=== PATIENT | female | born 1945 ===

== ENCOUNTER 2017-08-01 08:25 | Emergency (ER) | payer OTHER ==
[~2017-08-01] VITALS: Ht 162.6 cm; Wt 81.7 kg
[~2017-08-01 08:25] MED LIST: ALBU3IS INH; ALBU90OI INH; ALBU90OI6 INH; ALBU90OI61 INH; ASPI81CH PO; ASPI81EC PO; Albuterol2.5 MG/0.5 INH; Benadryl 50 mg50 MG PO; CHOL10002 PO; CHRO200 PO; CYAN1000 PO; CYCL10 PO; Cheratussin AC118 ML PO; DULERA 100 MCG/13 GM INH; Esgic Tablet1 EACH PO; FLUT220OIA INH; HYDACE10B PO; HYDCHL25 PO; HYDR1TAB94 PO; LANS30EC; LEVO750 PO; LIDO700A20 TOP; LISHYD1012 PO; MAGCHL64ER PO; METF500C PO; METO25ER PO; MIGRELIEF CAPL1 EACH PO; Mucinex600 MG PO; Multiple Vitam1 EAC1 PO; Nephro-Vite RX1 EA PO; Nicotine Patch1 EAC4 TD; Norco 5-325 Ta1 EACH PO; OMEP20ER PO; OMEP40CA12 PO; OMEPRAZOLE MAGN20 MG PO; OXECTA5 MG PO; OXYACE5T PO; OXYGEN; PRED20 PO; PROM25 PO; Pepcid40 MG PO; Percocet 5-3251 EACH PO; Prednisone20 MG PO; Red Yeast Rice600 MG PO; SUCR1 PO; TIOT18 IH; TOPI25 PO; Toprol Xl25 MG PO; UBID10 PO; VARE1 PO; Valium5 MG PO; Vitamin A and1 EACH PO; Zithromax250 MG PO; [UNRECOGNIZED DRUG - OTHER]
[2017-08-01 09:10] LABS: BASOPHILS ABSOLUTE AUTO 0.02 K/mm3 (0.00-0.23); BASOPHILS PERCENT AUTO 0 % (0-2); EOSINOPHILS ABSOLUTE AUTO 0.12 K/mm3 (0.00-0.68); EOSINOPHILS PERCENT AUTO 2 % (0-6); Hematocrit 30.6 % (33.0-51.0); IMMATURE GRAN ABSOLUTE AUTO 0.01 K/mm3 (0.00-0.10); IMMATURE GRAN PERCENT AUTO 0 % (0-1); LYMPHOCYTES ABSOLUTE AUTO 1.71 K/mm3 (0.84-5.20); LYMPHOCYTES PERCENT AUTO 31 % (21-46); MONOCYTES PERCENT AUTO 7 % (4-13); Mean Corpuscular HGB 21.7 pg (26.0-34.0); Mean Corpuscular HGB Conc 29.4 g/dL (31.5-36.5); Mean Corpuscular Volume 74 fL (80-100); Mean Platelet Volume 10.2 fL (9.1-12.4); NEUTROPHILS PERCENT AUTO 59 % (41-73); Platelet Count 220 K/mm3 (150-400); RDW Coefficient Variation 15.9 % (11.7-14.2); RDW Standard Deviation 42.6 fL (35.1-46.3); Red Blood Cell Count 4.15 M/mm3 (3.80-5.20); White Blood Cell Count 5.56 K/mm3 (4.00-11.30)
[2017-08-01 09:30] LABS: Albumin/Globulin Ratio 1.2 (0.8-1.8); Bilirubin, Total 0.3 mg/dL (0.1-1.0); Calcium, Blood 9.1 mg/dL (8.5-10.1); Globulin, Blood 3.3 g/dL (2.2-4.0); Potassium, Blood 3.7 mmol/L (3.5-5.5); Total Protein, Blood 7.3 g/dL (6.4-8.2); Troponin I 0.021 ng/mL (0.000-0.040)
[2017-08-01] MEDS ORDERED: Percocet 5-3251 EACH PO (10:53)
== END 2017-08-01 11:49 | disposition home or self-care (01) ==
LOC: ER 08:25
PROVIDERS: Emergency Medicine
DX: J44.1 Chronic obstructive pulmonary disease with (acute) exacerbation (principal); M54.6 Pain in thoracic spine; F17.210 Nicotine dependence, cigarettes, uncomplicated; Z88.8 Allergy status to other drugs, medicaments and biological substances; Z79.899 Other long term (current) drug therapy; Z79.82 Long term (current) use of aspirin; I10 Essential (primary) hypertension; J44.9 Chronic obstructive pulmonary disease, unspecified
CPT/HCPCS: 36415; 71046; 80053; 83880; 84484; 85025; 93005; 93010; 94644; 96361; 96365; 96375; 96376; 99284; J2405; J2930; J3010; J3475; J7030

== ENCOUNTER 2017-11-09 13:44 | Emergency (ER) | payer OTHER ==
[~2017-11-09] VITALS: Ht 162.6 cm; Wt 79.4 kg
[2017-11-09] MEDS ORDERED: LIDO700A20 TOP (14:20)
== END 2017-11-09 14:40 | disposition home or self-care (01) ==
LOC: ER 13:44
DX: M54.6 Pain in thoracic spine (principal); G89.29 Other chronic pain; I10 Essential (primary) hypertension; J44.9 Chronic obstructive pulmonary disease, unspecified; F17.210 Nicotine dependence, cigarettes, uncomplicated; Z88.8 Allergy status to other drugs, medicaments and biological substances; Z79.899 Other long term (current) drug therapy; Z79.82 Long term (current) use of aspirin
CPT/HCPCS: 99282

== ENCOUNTER 2017-11-14 10:34 | Emergency (ER) | payer OTHER ==
[~2017-11-14] VITALS: Ht 162.6 cm; Wt 77.1 kg
[2017-11-14] MEDS ORDERED: Hydrocodone-Ap1 EA20 (12:42)
[2017-11-14] MEDS ORDERED: Prednisone20 MG PO (14:12)
== END 2017-11-14 14:20 | disposition home or self-care (01) ==
LOC: ER 10:34
DX: J44.1 Chronic obstructive pulmonary disease with (acute) exacerbation (principal); M54.5 Low back pain; G89.29 Other chronic pain; Z88.8 Allergy status to other drugs, medicaments and biological substances; Z79.899 Other long term (current) drug therapy; Z79.82 Long term (current) use of aspirin; Z79.891 Long term (current) use of opiate analgesic; I10 Essential (primary) hypertension; F17.210 Nicotine dependence, cigarettes, uncomplicated
CPT/HCPCS: 71046; 94640; 96372; 99283; J1885

== ENCOUNTER 2019-02-15 16:39 | Observation (INO) | payer OTHER ==
[~2019-02-15] VITALS: Ht 162.6 cm; Wt 67.1 kg
[~2019-02-15 16:39] MED LIST changes: -ASPI81CH PO; +Aspirin EC81 MG PO; -CHOL10002 PO; +Hydrocodone-Ap1 EA20; -METO25ER PO; +METO50ER PO; -TIOT18 IH; +TIOT18 INH; +VITAMIN D31000 UNI2 PO
[2019-02-15 17:14] LABS: BASOPHILS ABSOLUTE AUTO 0.02 K/mm3 (0.00-0.23); BASOPHILS PERCENT AUTO 0 % (0-2); EOSINOPHILS ABSOLUTE AUTO 0.07 K/mm3 (0.00-0.68); EOSINOPHILS PERCENT AUTO 1 % (0-6); Hematocrit 27.3 % (33.0-51.0); Hemoglobin 7.9 g/dL (11.5-16.0); IMMATURE GRAN ABSOLUTE AUTO 0.02 K/mm3 (0.00-0.10); IMMATURE GRAN PERCENT AUTO 0 % (0-1); LYMPHOCYTES PERCENT AUTO 39 % (21-46); MONOCYTES ABSOLUTE AUTO 0.52 K/mm3 (0.16-1.47); MONOCYTES PERCENT AUTO 11 % (4-13); Mean Corpuscular HGB 20.7 pg (26.0-34.0); Mean Corpuscular HGB Conc 28.9 g/dL (31.5-36.5); Mean Corpuscular Volume 72 fL (80-100); Mean Platelet Volume 10.3 fL (9.1-12.4); NEUTROPHILS ABSOLUTE AUTO 2.34 K/mm3 (1.96-9.15); NEUTROPHILS PERCENT AUTO 48 % (41-73); Platelet Count 213 K/mm3 (150-400); RDW Coefficient Variation 18.2 % (11.7-14.2); RDW Standard Deviation 46.9 fL (35.1-46.3); Red Blood Cell Count 3.81 M/mm3 (3.80-5.20); White Blood Cell Count 4.87 K/mm3 (4.00-11.30)
[2019-02-15 17:28] LABS: Alanine Aminotransfer (ALT/SGP 12 U/L (12-78); Albumin, Blood 3.3 g/dL (3.4-5.0); Albumin/Globulin Ratio 1.1 (0.8-1.8); Alk Phos 62 U/L (50-136); Anion Gap 4 mmol/L (6-16); Aspartate Aminotrans (AST/SGOT 14 U/L (12-37); Bilirubin, Total 0.2 mg/dL (0.1-1.0); Blood Urea Nitrogen 14 mg/dL (8-24); Bun/Creatinine Ratio 16.1 (12.0-20.0); CO2, Blood 26 mmol/L (21-32); Calcium, Blood 8.9 mg/dL (8.5-10.1); Chloride, Blood 106 mmol/L (98-108); Creatinine, Blood 0.87 mg/dL (0.40-1.00); Globulin, Blood 3.1 g/dL (2.2-4.0); Glomerular Filtration Rate >60 (60-); Glucose, Blood 117 mg/dL (70-99); Potassium, Blood 3.7 mmol/L (3.5-5.5); Sodium, Blood 136 mmol/L (136-145); Total Protein, Blood 6.4 g/dL (6.4-8.2); Troponin I <0.015 ng/mL (0.000-0.040)
[2019-02-15] MEDS ORDERED: Norco 10-325 T1 EACH PO (20:39)
[2019-02-15] MEDS ORDERED: TRAZ50 PO (20:43)
[2019-02-15 21:10] LABS: Percent Saturation 5.2 % (15.0-50.0)
[2019-02-16 05:23] LABS: Hematocrit 27.3 % (33.0-51.0); Hemoglobin 7.7 g/dL (11.5-16.0); Mean Corpuscular HGB 20.1 pg (26.0-34.0); Mean Corpuscular HGB Conc 28.2 g/dL (31.5-36.5); Mean Corpuscular Volume 71 fL (80-100); Mean Platelet Volume 11.1 fL (9.1-12.4); Platelet Count 200 K/mm3 (150-400); RDW Coefficient Variation 18.2 % (11.7-14.2); RDW Standard Deviation 45.9 fL (35.1-46.3); Red Blood Cell Count 3.83 M/mm3 (3.80-5.20); White Blood Cell Count 3.42 K/mm3 (4.00-11.30)
[2019-02-16] MEDS ORDERED: FERSU300 PO (15:19)
[2019-02-16] MEDS ORDERED: Senna Plus Tab1 EACH PO (15:22)
[2019-02-16] MEDS ORDERED: Nicoderm Cq1 EAC1 (15:22)
[2019-02-16] MEDS ORDERED: MIRALAX17 GM PO (15:24)
[2019-02-16] MEDS ORDERED: PRED20 PO (15:26)
--- NOTE | 2019-02-16 16:13 | NUR ---
Discharge Summary A/O x 4. Discharge paper and teaching reviewed with patient. Given time to ask questions. Pt transported via w/c by COMB TENDER and discharge to home via personal vehicle. Personal belongings bagged by pt and COMB TENDER, sent home. Pt instructed to f/u with primary and pickling grader prescriptions faxed to [facility].
== END 2019-02-16 16:03 | disposition home or self-care (01) ==
LOC: ER 16:39 → MEDS 16:40
PROVIDERS: Emergency Medicine; ADMIT Hospitalist
DX: R07.9 Chest pain, unspecified (principal); G89.29 Other chronic pain; M54.9 Dorsalgia, unspecified; I10 Essential (primary) hypertension; J44.9 Chronic obstructive pulmonary disease, unspecified; D50.9 Iron deficiency anemia, unspecified; F17.210 Nicotine dependence, cigarettes, uncomplicated; Z99.81 Dependence on supplemental oxygen; Z88.8 Allergy status to other drugs, medicaments and biological substances; Z79.899 Other long term (current) drug therapy; Z79.51 Long term (current) use of inhaled steroids; Z79.82 Long term (current) use of aspirin
CPT/HCPCS: 36415; 71046; 80053; 82728; 83540; 83550; 83880; 84484; 85025; 85027; 86850; 86900; 86901; 93005; 93010; 94640; 94760; 96365; 96367; 96372; 96375; 97110; 97161; 99285-25; A9270; G0378; J1650; J2916; J2930; J3475; J7030

== ENCOUNTER 2020-11-20 07:46 | Inpatient (IN) | payer OTHER ==
[~2020-11-20] VITALS: Ht 162.6 cm; Wt 50.4 kg
[~2020-11-20 07:46] MED LIST changes: +FERSU300 PO; +MIRALAX17 GM PO; +Nicoderm Cq1 EAC1; +Norco 10-325 T1 EACH PO; +Senna Plus Tab1 EACH PO; +TRAZ50 PO
[2020-11-20 08:26] LABS: BASOPHILS ABSOLUTE AUTO 0.02 K/mm3 (0.00-0.23); BASOPHILS PERCENT AUTO 0 % (0-2); EOSINOPHILS PERCENT AUTO 0 % (0-6); Hematocrit 31.1 % (33.0-51.0); Hemoglobin 9.1 g/dL (11.5-16.0); IMMATURE GRAN ABSOLUTE AUTO 0.07 K/mm3 (0.00-0.10); IMMATURE GRAN PERCENT AUTO 1 % (0-1); LYMPHOCYTES ABSOLUTE AUTO 0.71 K/mm3 (0.84-5.20); LYMPHOCYTES PERCENT AUTO 10 % (21-46); MONOCYTES ABSOLUTE AUTO 0.67 K/mm3 (0.16-1.47); MONOCYTES PERCENT AUTO 10 % (4-13); Mean Corpuscular HGB 21.9 pg (26.0-34.0); Mean Corpuscular HGB Conc 29.3 g/dL (31.5-36.5); Mean Corpuscular Volume 75 fL (80-100); Mean Platelet Volume 9.3 fL (9.1-12.4); NEUTROPHILS ABSOLUTE AUTO 5.55 K/mm3 (1.96-9.15); NEUTROPHILS PERCENT AUTO 79 % (41-73); Platelet Count 184 K/mm3 (150-400); RDW Coefficient Variation 17.8 % (11.7-14.2); RDW Standard Deviation 48.1 fL (35.1-46.3); Red Blood Cell Count 4.15 M/mm3 (3.80-5.20); White Blood Cell Count 7.02 K/mm3 (4.00-11.30)
[2020-11-20 08:43] LABS: Alanine Aminotransfer (ALT/SGP 10 U/L (12-78); Albumin, Blood 3.2 g/dL (3.4-5.0); Alk Phos 62 U/L (50-136); Anion Gap 6 mmol/L (6-16); Aspartate Aminotrans (AST/SGOT 15 U/L (12-37); Bilirubin, Total 0.3 mg/dL (0.1-1.0); Blood Urea Nitrogen 20 mg/dL (8-24); Bun/Creatinine Ratio 21.3 (12.0-20.0); CO2, Blood 27 mmol/L (21-32); Chloride, Blood 101 mmol/L (98-108); Creatinine, Blood 0.94 mg/dL (0.40-1.00); Globulin, Blood 3.1 g/dL (2.2-4.0); Glomerular Filtration Rate >60 (60-); Glucose, Blood 141 mg/dL (70-99); Potassium, Blood 3.9 mmol/L (3.5-5.5); Sodium, Blood 134 mmol/L (136-145); Total Protein, Blood 6.3 g/dL (6.4-8.2)
[2020-11-20 09:10] LABS: Magnesium, Blood 1.7 mg/dL (1.6-2.4); Thyroid Stimulating Hormone 1.62 uIU/mL (0.360-4.800)
[2020-11-20 09:11] LABS: Percent Saturation 3.9 % (15.0-50.0)
[2020-11-20 11:55] LABS: U Amphetamine Screen Not Detected; U Barbituate Screen Not Detected; U Benzodiazapine Screen Not Detected; U Buprenorphine Screen Not Detected; U Cannabinoids Screen Not Detected; U Cocaine Screen Not Detected; U Methadone Screen Not Detected; U Methamphetamine Screen Not Detected; U Opiates Screen DETECTED; U Oxycodone Screen DETECTED; U Phencyclidine Screen Not Detected; U Propoxyphene Screen Not Detected
--- NOTE | 2020-11-20 12:28 | NUR ---
PT ARRIVED TO THE ROOM AT 1220. PT IS ALERT AND ORIENTED. PT BECOMES SHORT OF BREATH WITH MINIMAL ACTIVITY AND RR INCREASEDS. O2 SATURATION 98% ON 2L, WILL TITRATE DOWN. PT REPORTS BACK IS 02/04 BUT HAS IMPROVED WITH REPOSITIONING. WILL CONTINUE TO MONITOR.
[2020-11-20 12:56] LABS: International Normalized Ratio 0.93; Prothrombin Time Results 10.1 Sec (9.7-11.5)
--- NOTE | 2020-11-20 15:57 | NUR ---
DR. CARBONE ROUNDED ON PT. CYST PARTIALLY DRAINED WHEN DR. CARBONE ARRIVED. PRURULENT DISCHARGE FROM CYST. CLEAN GAUZE DRESSING PLACED. WILL CONTINUE TO MONITOR OUTPUT AND CHANGE DRESSING NEEDED.
--- NOTE | 2020-11-20 17:15 | NUR ---
EVENING ASSESSMENT ASSESSMENT UNCHANGED FROM ADMIT ASSESSMENT. PT REMAINS SOB WITH ACTIVITY. INCREASED RR AND EFFORT WITH MOVEMENT. PT REMAINS ALERT AND ORIENTED. LUNG SOUND RHONCUS T/O. VSS.
--- NOTE | 2020-11-20 18:24 | NUR ---
INCREASED SHORTNESS OF BREATH WITH ACTIVITY. PT GOT UP TO THE BEDSIDE COMMODE AND IS HAVING DIFFICULTY RECOVERING FROM ACTIVITY. O2 SATURATIONS REMAIN STABLE. ISTRATE NOTIFIED OF CHANGE IN RESPIRATORY STATUS. PLAN TO START PREDNISONE NOW.
--- NOTE | 2020-11-20 19:51 | NUR ---
SHIFT SUMMARY PT HAS BEEN PLEASANT AND COOPERATIVE MOST OF THE DAY. SHE WAS PLACED ON A 2 MD HOLD SINCE SHE APPEARS UNABLE TO CARE FOR HERSELF AT BASELINE. PT HAS BEEN TITRATED DOWN ON OXYGEN THIS SHIFT. SHE REMAINS ON 12L O2 VIA HIGH FLOW NC AT THIS TIME. PT APPEARS TO BE TOLERATING WELL. RR AND EFFORT EVEN AND UNLABORED ALTHOUGH LUNG SOUNDS HAVE BEEN DIMINISHED T/O THE DAY. PT HAS REPORTED SOME PAIN, MANAGED WITH TYLENOL. PT IS A 1 PERSON ASSIST. BLOOD GLUCOSE LEVELS REMAIN ELEVATED, PT LIKES TO SNACK. PT HAS BEEN OFFERED LOW CARB SNACKS AND SUGAR FREE FOODS. PT HAS ALSO BEEN EDUCATED ABOUT DIET AND REDUCING SNACKS. PT WAS ALSO EDUCATED THAT ELEVATED BLOOD GLUCOSE CAN CAUSE INCREASED THIRST. PT APPEARS TO LISTEN TO EDUCATION BUT NEEDS FREQUENT REINFORCEMENT. PT REPORTED ITCHING ON HER HEAD AND FELT LIKE A SPIDER WAS CRAWLING IN HER HAIR. HAIR WAS EXAMINED AND LICE EGGS FOUND. PT DECLINED LICE TREATMENT THIS AFTERNOON. VSS.
--- NOTE | 2020-11-20 19:59 | NUR ---
SHIFT SUMMARY PT WAS A NEW ADMIT THIS AFTERNOON. SHE HAS BEEN ALERT AND ORIENTED SINCE ADMIT. PT HAS BEEN SHORT OF BREATH WITH INCREASED RR AND EFFORT WITH MINIMAL ACTIVITY. SHE TAKES 5+ MINUTES TO RECOVER HER BREATH AFTER STANDING AND GETTING TO THE BEDSIDE COMMODE. PT HAD CRITICAL HIGH TROPONIN THIS AFTERNOON, DR. PHILIP CONSULTED PER DR. ELLIOTT'S REQUEST. DR. CARBONE WAS CONSULTED FOR THE CYST ON THE PT'S BACK AND WAS ABLE TO DRAIN SOME PURULENT FLUID. AT SHIFT CHANGE PT STARTED TO REPORT SOME CHEST PAIN, NITRO WAS GIVEN AT 1916. CHEST PAIN RESOLVED BY 1922. PT WAS ALSO GIVEN PRILOSEC BECAUSE SHE FELT THE PAIN MAY HAVE BEEN A RESULT OF ACID REFLUX. EKG DONE. WELDING MANAGER AND NOC RN AWARE OF CHEST PAIN. REPORT GIVEN TO NOC RN.
--- NOTE | 2020-11-20 19:59 | NUR ---
CHEST PAIN DURING CHANGE OF SHIFT REPORT PT HAD C/O SOB AND CHEST PAIN, BP ELEVATED AT THIS TIME SO 1 NITRO GIVEN W RESOLUTION OF SYMTPOMS. EKG DONE AT BEDSIDE AND CHARGE NURSE NOTIFIED.
[2020-11-21 04:17] LABS: BASOPHILS PERCENT AUTO 0 % (0-2); EOSINOPHILS PERCENT AUTO 0 % (0-6); Hematocrit 28.3 % (33.0-51.0); Hemoglobin 8.4 g/dL (11.5-16.0); IMMATURE GRAN ABSOLUTE AUTO 0.04 K/mm3 (0.00-0.10); IMMATURE GRAN PERCENT AUTO 2 % (0-1); LYMPHOCYTES ABSOLUTE AUTO 0.57 K/mm3 (0.84-5.20); LYMPHOCYTES PERCENT AUTO 21 % (21-46); MONOCYTES ABSOLUTE AUTO 0.09 K/mm3 (0.16-1.47); MONOCYTES PERCENT AUTO 3 % (4-13); Mean Corpuscular HGB 22.2 pg (26.0-34.0); Mean Corpuscular HGB Conc 29.7 g/dL (31.5-36.5); Mean Corpuscular Volume 75 fL (80-100); Mean Platelet Volume 9.9 fL (9.1-12.4); NEUTROPHILS ABSOLUTE AUTO 2.04 K/mm3 (1.96-9.15); NEUTROPHILS PERCENT AUTO 74 % (41-73); Platelet Count 196 K/mm3 (150-400); RDW Coefficient Variation 17.6 % (11.7-14.2); RDW Standard Deviation 47.2 fL (35.1-46.3); Red Blood Cell Count 3.79 M/mm3 (3.80-5.20); White Blood Cell Count 2.74 K/mm3 (4.00-11.30)
[2020-11-21 04:53] LABS: Alanine Aminotransfer (ALT/SGP 10 U/L (12-78); Albumin, Blood 2.8 g/dL (3.4-5.0); Alk Phos 47 U/L (50-136); Anion Gap 9 mmol/L (6-16); Aspartate Aminotrans (AST/SGOT 13 U/L (12-37); Bilirubin, Total 0.3 mg/dL (0.1-1.0); Blood Urea Nitrogen 18 mg/dL (8-24); CO2, Blood 23 mmol/L (21-32); Calcium, Blood 8.2 mg/dL (8.5-10.1); Chloride, Blood 103 mmol/L (98-108); Creatinine, Blood 0.75 mg/dL (0.40-1.00); Globulin, Blood 2.7 g/dL (2.2-4.0); Glomerular Filtration Rate >60 (60-); Glucose, Blood 89 mg/dL (70-99); Magnesium, Blood 1.9 mg/dL (1.6-2.4); Potassium, Blood 4.2 mmol/L (3.5-5.5); Sodium, Blood 135 mmol/L (136-145); Total Protein, Blood 5.5 g/dL (6.4-8.2)
--- NOTE | 2020-11-21 05:23 | NUR ---
WEAVER NEEDLE LOOM SUMMARY PT HAD ONE EPSIODE OF CP THIS SHIFT WHICH RESOLVED WITH ONE NITRO, SEE PREVIOUS NOTE. AFTER THAT EVENT THE PT DENIED ANY CP OR PRESSURE ALL SHIFT HOWEVER SHE DID HAVE MULTIPLE EPSIODES WHERE SHE SAID SHE COULDN'T BREATH. DURING THESE EVENTS THE PATIENT MAINTAINED O2 SATS >92% ON 2L NC BUT WAS TACHYPNEIC. PROVIDER NOTIFIED OF PT'S RESP PROBLEMS AND ORDER TO STOP FLUIDS WAS GIVEN. PT'S BP ELEVATED THIS SHIFT W SYSTOLIC 147-178. TELE HAS SHOWN SR IN THE 90'S W ST DEPRESSION, PT'S T WAVE COMPLETELY INVERTED THIS AM. PROTECTIVE OFFICER CONSULTED PT AT BEDSIDE PLAN FOR POSSIBLE CATH IN AM. PT NPO SINCE MIDNIGHT. TROPONIN UP TO 1.16 THIS AM. WILL REPORT TO ONCOMING RN.
--- NOTE | 2020-11-21 14:07 | NUR ---
ASSUMED CARE OF PT AT APPROX 0700. PT A&Ox3, FORGETFUL. PT REPORTS NAUSEA, NO MEDICATIONS PRESCRIBED, NOTIFIED DR MENDOZA, NEW ORDERS ENTERED. PT REPORTS CHRONIC PAIN TO STOMACH, NOTIIFED DR ELLIOTT, NEW ORDERS FOR PAIN MEDICATIONS TO MATCH HOME DOSE. PT REPORTS HEART BURN, NOTIIFED DR MENDOZA, NEW ORDERS FOR TUMS ENTERED. PT REPORTS FEELING ANXIOUS, NEW ORDERS FROM DR COVARRUBIAS ENTERED FOR LORAZEPAM. PT DENIES CHEST PAIN AND SOB. PT ON 2L O2 VIA NC. DR CARBONE TO BEDSIDE THIS AM, CLEANED AND FLUSHED CYST ON BACK, NEW MEPILEX IN PLACE, C/D/I. AWAITING ANGIO, HEPARIN CONTINUES PER ORDERS. VSS. NO OTHER ACUTE CHANGES. WILL CONTINUE TO MONITOR.
--- NOTE | 2020-11-21 19:54 | NUR ---
SHIFT SUMMARY PT TO POLISHING MACHINE OPERATOR AT APPROX 1630; BACK TO ROOM AT APPROX 1740. RIGHT RADIAL SITE; NO BLEEDING, BRUISING OR HEMATOMA NOTED; NO INTERVENTION NOTED. THIS AFTERNOON DR COVARRUBIAS VERBAL ORDER FOR PO ATIVAN. VSS. NO OTHER ACUTE CHANGES NOTED. REPORT GIVEN TO ONCOMING.
--- NOTE | 2020-11-22 04:21 | NUR ---
MD CALL PER DR. LANE, CALLED CARDIOLOGY AND NOTIFIED OF SYNCOPAL EPISODE AND SUBSEQUENT CHEST COMPRESSIONS. RHYTHM STRIPS IN CHART AND EKG DONE, PT IS SINUS TACH AND ALERT, COMPLAINING OF SHORTNESS OF BREATH. TRANSFERRED TO ICU-13 FOR BIPAP AND CARDIAC MONITORING FOR POSSIBLE NEED OF PACEMAKER.
--- NOTE | 2020-11-22 04:23 | NUR ---
CODE BLUE PT SET OFF BED ALARM, THIS RN ENTERED THE ROOM TO FIND THE PT SITTING AT THER EDGE OF THE BED APPEARING VERY TACHYPNEIC. THIS RN ASKED THE PATIENT HOW SHE WAS FEELING WHEN THE PT THEN QUICKLY FELL BACK INTO THE BED WITH HER HEAD LOCKED BACK. PT APPEARED CONCIOUS AT THIS TIME BUT WAS NOT RESPONDING VERBALLY. VP OF MARKETING CALLED AND STATED THAT THE PT WAS ASYSTOLE. PT WAS UNRESPONSIVE AT THIS TIME AND THIS RN BEGAN CHEST COMPRESSIONS A CODE BLUE WAS INITIATED. AFTER APPROX 3 CHEST COMPRESSIONS THE PT REGAINED CONSCIOUSNESS AND WAS ABLE TO TALK.
--- NOTE | 2020-11-22 04:26 | NUR ---
ATTEMPTED CALL TO FAMILY CALLED BOTH PHONE NUMBERS FOR SAMANTHA AND ROMEO AT THE PT'S REQUEST TO NOTIFY OF ICU TRANSFER. UNABLE TO REACH EITHER CONTACT, LET PT AND DATA PROCESSING SYSTEMS CONSULTANT JUAN CARLOS KNOW THAT FAMILY HAVE NOT BEEN NOTIFIED AT THIS TIME.
[2020-11-22 04:27] LABS: BASOPHILS ABSOLUTE AUTO 0.01 K/mm3 (0.00-0.23); BASOPHILS PERCENT AUTO 0 % (0-2); EOSINOPHILS PERCENT AUTO 0 % (0-6); Hematocrit 34.3 % (33.0-51.0); Hemoglobin 10.1 g/dL (11.5-16.0); IMMATURE GRAN ABSOLUTE AUTO 0.09 K/mm3 (0.00-0.10); IMMATURE GRAN PERCENT AUTO 1 % (0-1); LYMPHOCYTES ABSOLUTE AUTO 2.22 K/mm3 (0.84-5.20); LYMPHOCYTES PERCENT AUTO 16 % (21-46); MONOCYTES ABSOLUTE AUTO 0.98 K/mm3 (0.16-1.47); MONOCYTES PERCENT AUTO 7 % (4-13); Mean Corpuscular HGB 22.1 pg (26.0-34.0); Mean Corpuscular HGB Conc 29.4 g/dL (31.5-36.5); Mean Corpuscular Volume 75 fL (80-100); Mean Platelet Volume 9.6 fL (9.1-12.4); NEUTROPHILS ABSOLUTE AUTO 10.99 K/mm3 (1.96-9.15); NEUTROPHILS PERCENT AUTO 77 % (41-73); Platelet Count 306 K/mm3 (150-400); RDW Coefficient Variation 17.9 % (11.7-14.2); RDW Standard Deviation 47.8 fL (35.1-46.3); Red Blood Cell Count 4.58 M/mm3 (3.80-5.20); White Blood Cell Count 14.29 K/mm3 (4.00-11.30)
--- NOTE | 2020-11-22 04:38 | NUR ---
CALL TO MD CALL TO DR LANE REGARDING COARSE CRACKLES AND NEED FOR LASIX. OBTAINED ORDER FOR LASIX AND PULMONARY CONSULT. CALL TO DR DC REGARDING PT. UPDATE GIVEN. RECEIVED ORDER TO INCREASED LASIX TO 40 MG. PT CURRENTLY ON BIPAP 10/5 FIO2 35% RESP RATE 30'S.
[2020-11-22 04:51] LABS: Anion Gap 9 mmol/L (6-16); Blood Urea Nitrogen 35 mg/dL (8-24); Bun/Creatinine Ratio 34.3 (12.0-20.0); CO2, Blood 22 mmol/L (21-32); Calcium, Blood 8.6 mg/dL (8.5-10.1); Chloride, Blood 100 mmol/L (98-108); Creatinine, Blood 1.02 mg/dL (0.40-1.00); Glomerular Filtration Rate 56 (60-); Glucose, Blood 95 mg/dL (70-99); Magnesium, Blood 2.2 mg/dL (1.6-2.4); Potassium, Blood 4.7 mmol/L (3.5-5.5); Sodium, Blood 131 mmol/L (136-145)
--- NOTE | 2020-11-22 04:53 | NUR ---
BRANTLEY CATH/LASIX PT SITTING UP IN BED WITH BIPAP ON 03/01 FIO2 35%, LUNGS COARSE CRACKLES, RESP RATE 30'S. BRANTLEY CATH PLACED AND PT MED WITH LASIX 40MG PER DR DC.
[2020-11-22 05:05] LABS: Source, Urine Catheter
[2020-11-22 05:29] LABS: Appearance, Urine Clear (Clear); Bilirubin, Urine Neg (Neg); Blood, Urine 1+ (Neg); Color, Urine Yellow (P-Yellow); Glucose Qualitative, Urine Neg (Neg); Ketones, Urine 1+ (Neg); Leukocyte Esterase, Urine Neg (Neg); Nitrite, Urine Pos (Neg); Protein, Urine Neg (Neg); Urobilinogen, Urine NORM (Normal)
--- NOTE | 2020-11-22 06:30 | NUR ---
PAIN PT SITTING UP IN BED C/O BACK AND CHEST PAIN. PT S/P CPR. MED WITH MORPHINE 2.5 MG IV
[2020-11-22 06:50] LABS: Bacteria Many /hpf; Red Blood Cells, Urine 0-2 /hpf (0-2); Squamous Epithelial Cells Few /hpf (Few); White Blood Cells, Urine 0-2 /hpf (0-5)
[2020-11-22 06:51] LABS: Granular Casts 0-2 /lpf (0); Hyaline Casts 0-2 /lpf (0-2)
--- NOTE | 2020-11-22 08:17 | NUR ---
Assumed care of this Pt this morning. She is very anxious and mildly confused. RT was at the bedside this morning adjusting the pt's face mask as she said it was hurting her face and she now reports that "it feels better". Pt has increased anxiety with removal of the mask for oral care. Dr Mccullough was notified and gave orders for IV Ativan. The pt is sitting up in bed with HOB elevated and BIpap in place. her O2 Sats are in the high 90's. Michaels is patent with clear yellow urine output. Per report her is on the way and will be able to help with more of a history on this patient upon his arrival.
--- NOTE | 2020-11-22 08:29 | NUR ---
Dr Warren just stoppd by to see this pt and said that from a cardiac standpoint we will just continue to monitor her. Ativan was given as ordered and the pt appeas calmer and her respiratory rate is more controlled.
--- NOTE | 2020-11-22 10:24 | NUR ---
Pt is resting comfortably in bed now with eyes closed and at the bedside. Her has updated the son. The pt continues to oxygenate in the high 90's on 5 lpm via nc. IV Abo ifusing as ordered.
--- NOTE | 2020-11-22 15:28 | NUR ---
Pt has bee sleeping this aftrnoon with her at the bedside. She awoke having significant anxiety and air hunger. Her o2 sats remained in the high 90's but her work to breathe increased. Charge nurse and RT notified and at th bedside. pt was switched from NC to Bipap and ativan was givn as ordered for the anxity. Dr Mccullough was notified and he ordered lasix and an ekg. Pt anxiety is improving and she is sitting on the side of the bed with assistance.
--- NOTE | 2020-11-22 17:31 | NUR ---
DR. PHILIP MADE AWARE OF ISCHEMIC CHANGES TO ANTEROLATERAL LEADS. ANGIOGRAM WITH CLEAR CORONARIES-NO NEW ORDER AT THIS TIME.
--- NOTE | 2020-11-22 20:00 | NUR ---
ASSUMED CARE OF PT, BEDSIDE REPORT RECEIVED. PT IS NOTED RESTING QUIETLY RECLINING IN BED WITH BIPAP IN USE ON ARRIVAL TO ROOM, GTTS ARE NOTED LEVOPHED AT 3 MCG/MIN, PRECEDEX AT 0.5 MCG/KG/HR, AND NORMAL SALINE AT TKO. PT DOES NOT RESPOND TO LOUDLY SPOKEN NAME HOWEVER DOES WITHDRAW FROM ORAL CARE AND THEN STATES "LIKE HELL YOU ARE, GET THAT OUT OF MY MOUTH" WHEN IMPORTANCE OF BRUSHING TEETH IS EXPLAINED. SHE IS STATES THAT SHE IS "IN THE CLINIC" WHEN ASKED FOR LOCATION. SHE DOES NOT FOLLOW DIRECTIONS AT THIS TIME AND CONTINUES TO REACH FOR IV LINES, MONITORING CABLES, AND BIPAP WHENEVER WRIST RESTRAINTS ARE REMOVED FOR POSITION CHANGES, RESTRAINTS IMMEDIATELY REAPPLIED WHEN CARE IS COMPLETE. LUNGS ARE NOW NOTED TO BE CLEAR THROUGHOUT WITH DIM BASES BILAT, BIPAP SETTINGS NOTED AT 10/5, FIO2 30%, BUR 10, SATS ARE MID TO UPPER 90S. HRR, SINUS WITH OCCASIONAL PVCS NOTED ON MONITOR, SBP IS NOTED 110S WITH MAP 80S ON ARRIVAL TO ROOM AND LEVOPHED IS TITRATED DOWN TO 2 MCG/MIN, SKIN IS PALE, COOL AND DRY. TEMP PROBE NOTED LOW 96S, WARM BLANKETS APPLIED, WILL MONITOR. COPIOUS AMOUNTS OF PALE YELLOW URINE PRESENT IN URINARY DRAINAGE BAG, WILL MONITOR. ABD WITH ACTIVE BOWEL TONES, NO GRIMACING/GUARDING WITH PALPATION, ABD SOFT. EXTENDED DWELL IN PLACE TO RIGHT UPPER ARM, PERIPHERAL ACCESS TO LEFT FOREARM, NEAR WRIST. RIGHT RADIAL ACCESS SITE CONTINUES STABLE, SITE SOFT, NO BRUISING NOTED, PULSES FULL.
[2020-11-22 21:10] LABS: SARS-Cov-2 (COVID-19) PCR, MMC NEGATIVE (NEGATIVE)
[2020-11-23 03:39] LABS: BASOPHILS PERCENT AUTO 0 % (0-2); EOSINOPHILS PERCENT AUTO 0 % (0-6); Hematocrit 27.9 % (33.0-51.0); Hemoglobin 8.4 g/dL (11.5-16.0); IMMATURE GRAN ABSOLUTE AUTO 0.02 K/mm3 (0.00-0.10); IMMATURE GRAN PERCENT AUTO 0 % (0-1); LYMPHOCYTES ABSOLUTE AUTO 0.42 K/mm3 (0.84-5.20); LYMPHOCYTES PERCENT AUTO 8 % (21-46); MONOCYTES ABSOLUTE AUTO 0.12 K/mm3 (0.16-1.47); MONOCYTES PERCENT AUTO 2 % (4-13); Mean Corpuscular HGB 22.2 pg (26.0-34.0); Mean Corpuscular HGB Conc 30.1 g/dL (31.5-36.5); Mean Corpuscular Volume 74 fL (80-100); Mean Platelet Volume 9.7 fL (9.1-12.4); NEUTROPHILS ABSOLUTE AUTO 5.07 K/mm3 (1.96-9.15); NEUTROPHILS PERCENT AUTO 90 % (41-73); Platelet Count 219 K/mm3 (150-400); RDW Coefficient Variation 17.7 % (11.7-14.2); RDW Standard Deviation 47.1 fL (35.1-46.3); Red Blood Cell Count 3.79 M/mm3 (3.80-5.20); White Blood Cell Count 5.63 K/mm3 (4.00-11.30)
[2020-11-23 04:01] LABS: Albumin/Globulin Ratio 1.1 (0.8-1.8); Bilirubin, Total 0.3 mg/dL (0.1-1.0); Bun/Creatinine Ratio 31.9 (12.0-20.0); Calcium, Blood 8.3 mg/dL (8.5-10.1); Creatinine, Blood 1.19 mg/dL (0.40-1.00); Globulin, Blood 2.7 g/dL (2.2-4.0); Magnesium, Blood 2.3 mg/dL (1.6-2.4); Potassium, Blood 3.5 mmol/L (3.5-5.5); Total Protein, Blood 5.7 g/dL (6.4-8.2)
--- NOTE | 2020-11-23 05:54 | NUR ---
PT TOLERATED BIPAP THROUGHOUT SHIFT, SETTINGS REMAIN 10/5, FIO2 30% AND BUR 10, PT RESP RATE IS NOTED TEENS WITH SLEEP AND TIDAL VOLUMES ARE BETWEEN 5 AND 600 ML HOWEVER WITH INCREASES IN STIMULATION PT'S RESPIRATIONS ARE NOTED TO INCREASE TO HIGH 30S AND SHE COMPLAINS THAT SHE CAN'T BREATHE. SHE DOES RESPOND WELL TO VERBAL RELAXATION INSTRUCTIONS AND REASSURANCES REGARDING BIPAP ASSISTING HER BREATHING. LUNGS INTERMITTENTLY COARSE THROUGHOUT WITH EXPIRATORY WHEEZES NOTED, IMPROVE WITH COUGH. LEVOPHED CONTINUES VIA RIGHT UPPER ARM EXTENDED DWELL, THIS IS FREQUENTLY MONITORED FOR PATENCY THIS SHIFT, RATE CURRENTLY AT 2 MCG/MIN AND SBP 110S, ATTEMPTS TO TITRATE LEVOPHED TO 1 MCG/MIN HAVE RESULTED IN MAP LESS THAN 65. INITIAL COPIOUS URINE OUTPUT SLOWED THROUGHOUT SHIFT, TOTAL VOLUME OUT OF 950 ML. PRECEDEX WAS TITRATED UP TO 0.7 MCG/KG/HR FOR INCREASED AGITATION AT 0215 THIS AM AT WHICH TIME PT WAS NOT REDIRECTABLE AND WAS NOTED TO BE ATTEMPTING TO GET UP OOB AND PULL BIPAP MASK OFF WHILE RESTRAINTS WERE IN PLACE.
--- NOTE | 2020-11-23 08:55 | NUR ---
AM NOTE.... ASSUMED CARE OF PT AT 0700. PT IS SLEEPING WITH THE BIPAP MASK ON, BIPAP SETTINGS ARE 10/5 AND 30% WITH O2 SATS >95%, RR EVEN AND UNLABORED IN THE LOW 20'S. L/S COARSE T/O WITH SCATTERED WHEEZES ON THE LEFT, DIM IN THE BASES. BT PRESENT AND HYPOACTIVE, ABD IS SOFT AND NONTEDER TO PALP. PT HAS TRACE EDEMA TO THE TOPS OF HER FEET. PT'S BRANTLEY IS PATENT AND DRAINING TO GRAVITY. PT IS IN BILATERAL SOFT WRIST RESTRAINTS TO PROTECT LINES AND TUBES/BIPAP. PT'S BIPAP MASK WAS TAKEN OFF FOR ORAL CARE BY RT, ORAL CARE DONE BY THIS RN, PT WAS ON 3L NC WITH O2 SATS >90%, RR EVEN BUT INCREASED TO THE 30'S. PT'S ANXIETY INCREASED WELL PT STARTED SAYING "I CAN'T BREATH I CAN'T BREATH" PT WAS ABLE TO CALM DOWN WITH THERAPEUTIC COMMUNICATION BY THIS RN. PT WAS C/O OF 9/10 PAIN TO HER CHEST WHERE SHE HAD GOTTEN CPR. PT WAS MEDICATED PER EMAR. WILL CONTINUE TO MONITOR.
--- NOTE | 2020-11-23 13:45 | NUR ---
PT UPDATE... PT GOT UP TO THE RECLINER CHAIR WITH 1 PERSON MOD ASSIST, PT TOLERATED THE TRANSFER WELL BUT STARTED TO BECOME ANXIOUS ONCE SHE WAS IN THE CHAIR, PT ALSO STATED THAT HER CHEST PAIN WAS STARTING TO RETURN, PT WAS MEDICATED WITH NORCO 5/325. PT STATED THIS WORKED WELL FOR HER PAIN. PT ALSO GOT A BEDBATH WHILE UP IN THE CHAIR AND NEW LINENS. CALL LIGHT IN REACH WILL CONTINUE TO MONITOR.
--- NOTE | 2020-11-23 14:31 | NUR ---
Pt. lyingin bed resting ans unable to talk prayed for pt. and blessed her.
--- NOTE | 2020-11-23 15:28 | NUR ---
PT UPDATE/TRANSFER... WHILE THIS RN WAS GIVING THE PT A DRINK OF WATER WITHOUT A STRAW THE PT STARTED TO COUGH AND HER VOICE SOUNDED WET AND "GURRGLY" WHEN SHE WAS DONE COUGHING. PROVIDER AWARE AND AN ORDER FOR SPEECH THERAPY WAS OBTAINED. PT IS TO TRANSFER TO PCU 6, REPORT WAS CALLED TO ALIA Hedrick RN. PT'S VS STABLE PT'S SON AT THE BEDSIDE AND UPDATED ON PT'S CONDITION AND PLAN OF CARE. PT'S WAS CALLED AND UPDATED ON THE PT'S CONDTION, PLAN OF CARE AND PLAN TO MOVE PT'S ROOMS. ALL OF PT'S BELONGINGS PACKED AND SENT WITH THE PT. WOUND CARE WAS DONE PER ORDERS IN THE PT'S CHART, PICTURES OF THE PT'S WOUND IN THE PT'S CHART. PT IS CURRENTLY NPO UNTIL SHE IS SEEN BY SPEECH THERAPY.
--- NOTE | 2020-11-23 16:39 | NUR ---
PT TRANSFER... PT TRANSFERED TO PCU 6, SPEECH THERAPY SAW THE PT AND MADE THE PT NPO UNTIL THEY CAN ASSESS THE PT TOMORROW. PT VERBALIZED HER UNDERSTANDING OF WHY SHE IS NPO. ALL OF PT'S BELONGINGS PACKED AND SENT WITH THE PT. PT WAS ON 2L NC WITH STABLE VS WHEN SHE DEPARTED THE UNIT.
--- NOTE | 2020-11-23 18:37 | NUR ---
SHIFT SUMMARY PT ARRIVED TO PCU THIS AFTERNOON FROM ICU. PT WAS ABLE TO WALK AND TRANSFER FROM BED TO BED WITH 1 PERSON ASSISTANCE. PT HAS BRANTLEY IN TO BE DC'D IN THE AM. PT REPORTS PAIN, PAIN MEDICATION HAS BEEN UPDATED SINCE SHE CAN NOT HAVE ANY PO MEDICATIONS OR INTAKE AT THIS TIME BASED ON ST EVALUATION TODAY. PT IS ON 2L HUMDIFIED O2 TO MAINTAIN SATS, [employer] SAO2 IS 88% ACCORDING TO PULM. NOTE. PT IS ALERT AND ORIENTED. PT IS RESTING IN BED AT THIS TIME
[2020-11-24 04:59] LABS: BASOPHILS PERCENT AUTO 0 % (0-2); EOSINOPHILS PERCENT AUTO 0 % (0-6); Hematocrit 26.7 % (33.0-51.0); Hemoglobin 8.1 g/dL (11.5-16.0); IMMATURE GRAN ABSOLUTE AUTO 0.03 K/mm3 (0.00-0.10); IMMATURE GRAN PERCENT AUTO 0 % (0-1); LYMPHOCYTES ABSOLUTE AUTO 0.57 K/mm3 (0.84-5.20); LYMPHOCYTES PERCENT AUTO 8 % (21-46); MONOCYTES ABSOLUTE AUTO 0.55 K/mm3 (0.16-1.47); MONOCYTES PERCENT AUTO 8 % (4-13); Mean Corpuscular HGB 22.3 pg (26.0-34.0); Mean Corpuscular HGB Conc 30.3 g/dL (31.5-36.5); Mean Corpuscular Volume 73 fL (80-100); Mean Platelet Volume 9.4 fL (9.1-12.4); NEUTROPHILS ABSOLUTE AUTO 6.16 K/mm3 (1.96-9.15); NEUTROPHILS PERCENT AUTO 84 % (41-73); Platelet Count 169 K/mm3 (150-400); RDW Coefficient Variation 18.2 % (11.7-14.2); RDW Standard Deviation 48.2 fL (35.1-46.3); Red Blood Cell Count 3.64 M/mm3 (3.80-5.20); White Blood Cell Count 7.31 K/mm3 (4.00-11.30)
[2020-11-24 05:26] LABS: Bun/Creatinine Ratio 35.2 (12.0-20.0); C-REACTIVE PROTEIN, EXT RANGE 1.19 mg/dL (0.000-0.300); Calcium, Blood 8.9 mg/dL (8.5-10.1); Creatinine, Blood 1.08 mg/dL (0.40-1.00); Magnesium, Blood 2.3 mg/dL (1.6-2.4); Potassium, Blood 3.2 mmol/L (3.5-5.5); Thyroid Stimulating Hormone 0.266 uIU/mL (0.360-4.800)
--- NOTE | 2020-11-24 06:23 | NUR ---
SHIFT SUMMARY PT REMAINED STABLE THIS EVENING - SHE RECEIVED PRN PAIN MEDIATION FOR CHEST/RIB PAIN RATING "14 OUT OF 10." BRANTLEY IN PLACE, DRAINING YELLOW MORENO URINE. DAVID POWERGLIDE IN PLACE, DRAWS BLOOD WELL. SATING ABOVE 90% ON 2LPM VIA NC. WILL CONTINUE TO MONITOR.
--- NOTE | 2020-11-24 18:42 | NUR ---
SHIFT SUMMARY PT HAS BEEN COOPERATIVE WITH CARE TODAY. PT CONTINUES TO HAVE SOME CHEST SORENESS FROM THE CPR SHE RECEIVED SEVERAL DAYS AGO, SHE IS MEDICATED PER EMAR. PT CAN MAINTAIN SATS AT 92% AND ABOVE ON 2L NC OR SHE PREFERS THE 15L HIGH FLOW HUMIDIFIED NC AT 30% WITH THE BIPAP MACHINE. VS HAVE BEEN STABLE OTHERWISE. PT WAS EVALUATED TODAY BY SPEECH THERAPY AND IT WAS DETERMINED SHE COULD HAVE PUREE DIET, HONEY THICK LIQUIDS, NO STRAWS AND PILLS IN APPLESAUCE ONLY. PT ALSO WORKED WITH PHYSICAL THERAPY AND OCCUPATIONAL THERAPY TODAY WITH THE GOAL OF GOING HOME WITH HOME HEALTH OR HOME PT. PT IS RESTING IN BED AT THIS TIME
--- NOTE | 2020-11-25 06:11 | NUR ---
SHIFT SUMMARY PATIENT FOUND TO BE A PLEASANT LADY WHO IS A&OX4. PAIN TO RIBS CONTINUES AND PRN MORPHINE AND NORCO KEEPING PAIN AT TOLERABLE LEVEL. LAYING IN BED SEEMS TO MAKE WORSE. UP WITH ONE TO BSC. SATING LOW 90'S ON THE HF NC MASK ON 15L 30% FOR COMFORT FROM HUMIDITY VS REGULAR NC. EX WHEEZES AND OCAMPO NOTED. SR/ST ON THE MONITOR. TOLERATING PUREED DIET WITHOUT NAUSEA BUT HATES THE FOOD AND REFUSED TO EAT OR DRINK MUCH. VOIDING WELL PER BSC. NO ACUTE CONCERNS AT THIS TIME. WILL CONTINUE TO MONITOR UNTIL REPORT GIVEN TO LURDES TOLBERT.
[2020-11-25 09:53] LABS: Anion Gap 6 mmol/L (6-16); Blood Urea Nitrogen 33 mg/dL (8-24); CO2, Blood 30 mmol/L (21-32); Calcium, Blood 8.9 mg/dL (8.5-10.1); Chloride, Blood 105 mmol/L (98-108); Creatinine, Blood 0.87 mg/dL (0.40-1.00); Glomerular Filtration Rate >60 (60-); Glucose, Blood 149 mg/dL (70-99); Potassium, Blood 3.5 mmol/L (3.5-5.5); Sodium, Blood 141 mmol/L (136-145)
[2020-11-25 13:51] LABS: Stool Occult Blood Guaiac 1 Neg (Neg)
--- NOTE | 2020-11-25 20:04 | NUR ---
SHIFT SUMMARY PT HAS HAD INCREASED WORK OF BREATHING TODAY, SHE HAS BEEN SO PAINFUL AND UNCOMFORTABLE FROM THE COMPRESSIONS A FEW DAYS AGO THAT SHE STRUGGLES TO TAKE SLOW DEEP BREATHS, SHE IS ON HIGH FLOW HUMIDIFIED NC 30L AND 25%. PT HAD BOWEL CARE THIS MORNING AFTER SHE REPORTED NOT HAVING A BM FOR ALMOST A WEEK; THE MILK OF MAG WAS VERY EFFECTIVE IN HELPING HER HAVE A BM TODAY. PT CONTINUES TO HAVE PAIN, TORADOL WAS ADDED TO HER PAIN REGIMINE. THE CYST ON HER BACK WAS REDRESSED TODAY, IT WAS IRRIGATED WITH 20NS, CLEANED WITH WOUND CLEANSER, PACKED WITH A WET GAUZE AND COVERED WITH EXUDRY AND A MEPILEX. THERE IS A PICTURE OF THE WOUND IN THE CHART; 1ML TOPICAL LIDOCAINE WAS USED TO HELP PAIN AT THE SITE; IT WAS DRAINING GREEN PURULENT DRAINAGE; A SMALL AMOUNT. PT IS SBA TO THE BSC; VS STABLE OTHER THAN INCREASED O2 NEED. PT IS RESTING IN BED AT THIS TIME
[2020-11-26 05:24] LABS: Anion Gap 4 mmol/L (6-16); Blood Urea Nitrogen 34 mg/dL (8-24); Bun/Creatinine Ratio 41.3 (12.0-20.0); CO2, Blood 33 mmol/L (21-32); Calcium, Blood 8.7 mg/dL (8.5-10.1); Chloride, Blood 107 mmol/L (98-108); Creatinine, Blood 0.82 mg/dL (0.40-1.00); Glomerular Filtration Rate >60 (60-); Glucose, Blood 130 mg/dL (70-99); Potassium, Blood 3.5 mmol/L (3.5-5.5); Sodium, Blood 144 mmol/L (136-145)
--- NOTE | 2020-11-26 05:39 | NUR ---
SHIFT SUMMARY PATIENT IS A PLEASANT LADY WHO IS A&0X4 BUT FORGETFUL. GEN. WEAKNESS NOTED. VSS. WHILE PATIENT IS ABLE TO MAINTAIN O2 SAT IN 90'S WITH 2LNC, HF HUMIDIFIED 20L, 30% FOR HER WORK OF BREATHING AND ANXIETY. EX WHEEZES AND OCAMPO NOTED. CONTINUES TO HAVE SEVERE PAIN TO RIBS AND PRN NORCO AND MORPHINE FOR BREAKTHROUGH KEEPING AT TOLERABLE LEVEL. WHILE TOLERATING PUREED DIET, PATIENT REFUSES TO DRINK THICK LIQUIDS AND POOR ORAL INTAKE WITH THIS SHE DOES NOT LIKE THIS DIET AT ALL. UP WITH ONE ASSIST TO BSC. PRN ATIVAN X 1 GIVEN FOR ANX. NO ACUTE CONCERNS AT THIS TIME. WILL CONTINUE TO MONITOR UNTIL REPORT GIVEN TO DAYSHIMARYANNE TOLBERT.
--- NOTE | 2020-11-26 16:38 | NUR ---
DISCHARGE REVIEWED WITH PT. HE VERBALIZED UNDERSTANDING MEDS AND INST. IV PULLED INTACT. TELE REMOVED. PT WHEELED TO DOOR BY AIDE. 1640
--- NOTE | 2020-11-26 17:57 | NUR ---
PT STATES PAIN FINALLY GONE THIS AFT AFTER PAIN PILL TODAY. IS ON AIRVO AND OCC ON THE HI RULA N/C AT 4L. PT STILL SHALLOW RESP AT 16-20 T/O DAY. STATES SOME BETTER. NO NEW CONERNS NOTED. VSS STABLE THIS SHIFT. LUNGS CONTINUE COARSE/ BED IN LOW POSITION, CALL LITE IN REACH, CALLS APPROP
[2020-11-27 04:13] LABS: BASOPHILS ABSOLUTE AUTO 0.01 K/mm3 (0.00-0.23); BASOPHILS PERCENT AUTO 0 % (0-2); EOSINOPHILS PERCENT AUTO 0 % (0-6); Hemoglobin 8.3 g/dL (11.5-16.0); IMMATURE GRAN PERCENT AUTO 1 % (0-1); LYMPHOCYTES ABSOLUTE AUTO 0.87 K/mm3 (0.84-5.20); LYMPHOCYTES PERCENT AUTO 7 % (21-46); MONOCYTES ABSOLUTE AUTO 0.72 K/mm3 (0.16-1.47); MONOCYTES PERCENT AUTO 6 % (4-13); Mean Corpuscular HGB 22.5 pg (26.0-34.0); Mean Corpuscular HGB Conc 29.6 g/dL (31.5-36.5); Mean Corpuscular Volume 76 fL (80-100); Mean Platelet Volume 10.2 fL (9.1-12.4); NEUTROPHILS ABSOLUTE AUTO 10.61 K/mm3 (1.96-9.15); NEUTROPHILS PERCENT AUTO 86 % (41-73); Platelet Count 212 K/mm3 (150-400); RDW Coefficient Variation 18.6 % (11.7-14.2); RDW Standard Deviation 51.2 fL (35.1-46.3); Red Blood Cell Count 3.69 M/mm3 (3.80-5.20); White Blood Cell Count 12.31 K/mm3 (4.00-11.30)
[2020-11-27 04:36] LABS: Anion Gap 4 mmol/L (6-16); Blood Urea Nitrogen 34 mg/dL (8-24); Bun/Creatinine Ratio 38.8 (12.0-20.0); CO2, Blood 33 mmol/L (21-32); Calcium, Blood 8.5 mg/dL (8.5-10.1); Chloride, Blood 104 mmol/L (98-108); Creatinine, Blood 0.88 mg/dL (0.40-1.00); Glomerular Filtration Rate >60 (60-); Glucose, Blood 143 mg/dL (70-99); Potassium, Blood 3.9 mmol/L (3.5-5.5); Sodium, Blood 141 mmol/L (136-145)
--- NOTE | 2020-11-27 06:07 | NUR ---
SUMMARY NO ACUTE CHANGES NOTED THROUGH THE NIGHT. PT HAS RECIEVED MORPHINE FOR PAIN & ATIVAN FOR HER ANXIETY. PT IS A 1 ASSIST TO THE BEDSIDE COMMODE. SHE NEEDS FREQUENT REMINDERS TO USE HER CALL LIGHT, TAB ALARM WAS PLACED DUE TO BED ALARM NOT WORKING. PT IS REFUSING PO INTAKE, VOIDING WNL, LOOSE STOOL NOTED X1, STOOL SOFTENERS HELD PER PT REQUEST. CONTINUOUS BIOX IN PLACE.
--- NOTE | 2020-11-27 10:00 | NUR ---
CALLED TO ROOM BY EMAIL MANAGER AND DEVELOPMENT COACH. PT FOUND ON FLOOR CURLED UP IN POSITION. PREVIOUSLY SITTING IN RECLINER AT BEDSIDE WITH TAG ALARM ON. LIFTED TO BED BY HELP OF SEVERAL STAFF MEMBERS, DR. PURI TO ROOM TO ASSESS. NO OBVIOUS INJURY FOUND. SPOUSE CALLED BY EMAIL MANAGER. AFTER ARRIVAL PT TELLS SPOUSE SHE SLID OUT OF THE CHAIR ON PURPOSE AND LAID ON FLOOR WITH NO EXPLANATION TO WHY. HX OF ANXIETY AND PANICK ATTACKS. APPEARS ANXIOUS, MED ADJUSTMENT ORDERS VERABALLY GIVEN BY DR. PURI.
--- NOTE | 2020-11-27 10:06 | NUR ---
THIS RN CALLED TO PT'S ROOM, PT FOUND ON FLOOR MOMENTS AGO BY ENGINEER SYSTEMS GABE. 3 RNS AND CAR SHAGGER IN ROOM. PT IS NOTED TO BE LYING ON HER RIGHT SIDE, NO OBVIOUS INJURIES. PT IS TACHYPNIC, QUIETLY MOANING, EYES CLOSED AND MINIMALLY INTERACTIVE WITH STAFF. PT AROUSABLE TO PHYSICAL STIMULI, SPEAKS IN ONE TO TWO WORDS AT A TIME. PT DENIES ANY FOCAL PAIN TO HER HEAD, STATES SHE DOES NOT KNOW HOW SHE ENDED UP ON THE FLOOR. DR PURI CALLED TO ROOM AND ARRIVED SHORTLY AFTER. DR PURI ASSESSING PT, SEE DOCUMENTED VIAL SIGNS. PT GENTLY ROLLED ONTO A LIFT SHEET, WITH HEAD/NECK SUPPORT BY THIS RN. PT LIFTED BACK TO BED IN THE LIFT SHEET BY STAFF. DR PURI CONTINUES TO ASSESS PT, STATES TO HOLD ANY SEDATING MEDICATION AT THIS TIME AND MONITOR PT'S CONDITION. PT'S FAMILY UPDATED BY LIZZETTE TOLBERT. PRIMARY RN SARAH AWARE AND WILL CONTINUE TO MONITOR PT. PT BACK TO BED IN POSITION OF SAFETY AND COMFORT, CALL LIGHT IN REACH, BED ALARM ON.
--- NOTE | 2020-11-27 18:08 | NUR ---
SHIFT SUMMARY; ASSUMED CARE AT 0700, REPORT FROM TOMASZ VILA. A/A/OX4 DURING SHIFT WITH PERIODS OF ANXIETY. O2 AT 4L. MEDICATED PER EMAR WITH MEDS IN APPLESAUCE. TREATED FOR ANXIETY PER EMAR. SPOUSE AT BEDSIDE THROUGHOUT DAY. UP TO BEDSIDE COMMODE WITH ASSISTANCE. ATTENDS IN PLACE. 02 SATS 93-95%. VSS, NO ACUTE CHANGES DURING SHIFT. MEPLIX INPLACE OVER RIGHT SCAPULA WHERE CYST WAS DRAINED. WILL CONTINUE TO MONITOR AND TREAT UNTIL CHANGE OF SHIFT.
--- NOTE | 2020-11-27 19:30 | NUR ---
ASSUMED CARE OF PATIENT AT APPROXIMATELY 1900 FROM SARAH Reed RN. JAMES ATTEMPTING TO TRIPOD DURING BEDSIDE REPORT; PATIENT GIVEN EXTRA PILLOW OVER BEDSIDE TABLE; PATIENT REPORTS SHE NEEDS "MEDICINE NOW"; REPORTS CHEST PAIN 10/10 FROM CPR PREVIOUSLY; MEDICATED PER EMAR. PATIENT VERY ANXIUOS; MAKING REPORTS "I DONT THING I AM GOING TO MAKE IT"; PATIENT WILL BE MOVED TO [facility] FROM [facility] DUE TO HIGH FALL RISK; BED ALARM NOT WORKNING IN U6 AND PATIENT FOUND ON FLOOR TODAY FOR CLOSER OBSERVATION IN FRONT OF NURSING STATION. PG S/L. PIV S/L. NSR/ST ON TELE; OXYGEN SATURATION ABOVE 90% ON 1-2 LPM VIA NC; VERY DYSPNEIC; SBA OUT OF BED.
--- NOTE | 2020-11-27 20:15 | NUR ---
PATIENT MOVED FROM [facility] TO [facility] FOR CLOSER OBSERVATION
--- NOTE | 2020-11-27 23:55 | NUR ---
CALLED DR. ECHOLS TO REPORT PATIENT'S BLOOD PRESSURE 160-180 SINCE START OF SHIFT AFTER GIVING PM DOSE OF METOPROLOL AND MEDICATING FOR PAIN
--- NOTE | 2020-11-28 06:32 | NUR ---
PATIENT PAINFUL MOST OF NIGHT; IV MORPHINE SEEMED TO HELP THE MOST; PAIN IN CHEST FROM CPR DROPPED FROM 10 TO 5 WITH MORPHINE; PATIENT UP WITH 2 ASSIST AND FWW. TELE CALLED TO REPORT CHANGES IN T WAVE; EKG DONE AND TELE PATCHES ADJUSTED; BANK CONSULTANT AWARE. HYDRALAZINE GIVEN ONCE FOR HTN; GOOD RESULTS.
--- NOTE | 2020-11-28 18:35 | NUR ---
SHIFT SUMMARY: PT CONTINUES A&O, BECOMES INCREASINGLY ANXIOUS THIS AFTERNOON AND MEDICATED PER EMAR. PT MAINTAINED O2 SATS >92% ON 1 L/MIN, SR ON MONITOR. PT ABLE TO TAKE MEDICATION WITH HER SMOOTHIE/APPLESAUCE. MEPILEX CONTINUES IN PLACE ON PT'S BACK, PT REQUESTED TO WAIT UNTIL TOMORROW FOR DRESSING CHANGE. ATTENDS CONTINUES IN PLACED, CHANGED NEEDED. AT THIS TIME, PT RESTING QUIETLY IN ROOM. WILL CONTINUE TO MONITOR AND TREAT ACCORDINGLY UNTIL CHANGE OF SHIFT.
--- NOTE | 2020-11-28 23:02 | NUR ---
ASSUMED CARE OF PATIENT AT APPROXIMATELY 1915 FROM FRANSISCO Santos RN. PATIENT ALERT AND ORIENTED TO SELF, FOLLOWING DIRECTIONS AND PLACE; ANXIOUS; REPORTS CHEST PAIN 10/10 FROM CPR PREVIOUSLY; MEDICATED PER EMAR; GOOD RESULTS FROM PO MORPHINE. POOR APPETITE REPORTED FROM DINNER DUE TO SHORTNESS OF BREATH. PG S/L. PIV S/L. NSR/ST ON TELE; OXYGEN SATURATION ABOVE 90% ON 1-2 LPM VIA NC; VERY DYSPNEIC; TWO ASSIST OUT OF BED.
[2020-11-29 05:51] LABS: BASOPHILS ABSOLUTE AUTO 0.02 K/mm3 (0.00-0.23); BASOPHILS PERCENT AUTO 0 % (0-2); EOSINOPHILS PERCENT AUTO 0 % (0-6); Hematocrit 29.8 % (33.0-51.0); Hemoglobin 8.7 g/dL (11.5-16.0); IMMATURE GRAN ABSOLUTE AUTO 0.13 K/mm3 (0.00-0.10); IMMATURE GRAN PERCENT AUTO 1 % (0-1); LYMPHOCYTES PERCENT AUTO 8 % (21-46); MONOCYTES ABSOLUTE AUTO 1.21 K/mm3 (0.16-1.47); MONOCYTES PERCENT AUTO 7 % (4-13); Mean Corpuscular HGB 22.4 pg (26.0-34.0); Mean Corpuscular HGB Conc 29.2 g/dL (31.5-36.5); Mean Corpuscular Volume 77 fL (80-100); Mean Platelet Volume 10.2 fL (9.1-12.4); NEUTROPHILS ABSOLUTE AUTO 14.51 K/mm3 (1.96-9.15); NEUTROPHILS PERCENT AUTO 85 % (41-73); Platelet Count 224 K/mm3 (150-400); RDW Coefficient Variation 19.6 % (11.7-14.2); RDW Standard Deviation 52.5 fL (35.1-46.3); Red Blood Cell Count 3.88 M/mm3 (3.80-5.20); White Blood Cell Count 17.17 K/mm3 (4.00-11.30)
[2020-11-29 06:12] LABS: Bun/Creatinine Ratio 31.8 (12.0-20.0); Calcium, Blood 9.3 mg/dL (8.5-10.1); Creatinine, Blood 0.97 mg/dL (0.40-1.00); Potassium, Blood 3.1 mmol/L (3.5-5.5)
--- NOTE | 2020-11-29 06:22 | NUR ---
PATIENT'S PAIN AND ANXIETY WELL CONTROLLED WITH ONE DOSE OF MORPINE AND XANAX; UP TO CHAIR FOR A FEW HOURS AND BACK; REPORTS FEELS STRONGER; VSS.
--- NOTE | 2020-11-29 14:12 | NUR ---
Met. pt.in bed relaxed and watching T.V. Pt. reports doing fine encouraged pt. and offered prayers .
--- NOTE | 2020-11-29 18:24 | NUR ---
SHIFT SUMMARY: PT CONTINUES A&O, EXPIRATORY WHEEZES AND FINE CRACKLES T/OUT, SR ON MONITOR. PT REQUIRING PRN ANXIETY AND PAIN MEDICATION OFTEN. PT REFUSES CPT YESTERDAY AND TODAY, PT INFORMED OF BENEFIT OF TREATMENT, STATES SHE WILL THINK ABOUT IT. PT EVAL COMPLETED TODAY, PT UP WITH FWW, DISPLAYS WEAKNESS. BED ALARM CONTINUES IN PLACE. VSS. WILL CONTINUE TO MONITOR AND TREAT ACCORDINGLY UNTIL CHANGE OF SHIFT.
--- NOTE | 2020-11-29 23:24 | NUR ---
CARE ASSUMPTION PT IS ALERT WITH SOME CONFUSION. HAS TRIED GETTING OUT OF THE BED AND SET OFF BED ALARM. DENIES CHEST PAIN OR SOB. DENIES ANY PAIN. ON BIPAP WITH SATS ABOVE 90%. PT IS INCONT OF STOOL AND URINE. BED ALARM IS ON, CALLL LIGHT WITHIN REACH. WILL CONTINUE TO MONITOR.
[2020-11-30 04:10] LABS: BASOPHILS ABSOLUTE AUTO 0.01 K/mm3 (0.00-0.23); BASOPHILS PERCENT AUTO 0 % (0-2); EOSINOPHILS PERCENT AUTO 0 % (0-6); Hematocrit 26.4 % (33.0-51.0); Hemoglobin 7.8 g/dL (11.5-16.0); IMMATURE GRAN ABSOLUTE AUTO 0.12 K/mm3 (0.00-0.10); IMMATURE GRAN PERCENT AUTO 1 % (0-1); LYMPHOCYTES ABSOLUTE AUTO 0.69 K/mm3 (0.84-5.20); LYMPHOCYTES PERCENT AUTO 6 % (21-46); MONOCYTES PERCENT AUTO 7 % (4-13); Mean Corpuscular HGB 22.6 pg (26.0-34.0); Mean Corpuscular HGB Conc 29.5 g/dL (31.5-36.5); Mean Corpuscular Volume 77 fL (80-100); Mean Platelet Volume 9.7 fL (9.1-12.4); NEUTROPHILS ABSOLUTE AUTO 10.42 K/mm3 (1.96-9.15); NEUTROPHILS PERCENT AUTO 87 % (41-73); Platelet Count 184 K/mm3 (150-400); RDW Coefficient Variation 19.7 % (11.7-14.2); RDW Standard Deviation 52.7 fL (35.1-46.3); Red Blood Cell Count 3.45 M/mm3 (3.80-5.20); White Blood Cell Count 12.04 K/mm3 (4.00-11.30)
[2020-11-30 04:25] LABS: Anion Gap 3 mmol/L (6-16); Blood Urea Nitrogen 32 mg/dL (8-24); Bun/Creatinine Ratio 33.2 (12.0-20.0); CO2, Blood 35 mmol/L (21-32); Calcium, Blood 8.7 mg/dL (8.5-10.1); Chloride, Blood 104 mmol/L (98-108); Creatinine, Blood 0.96 mg/dL (0.40-1.00); Glomerular Filtration Rate >60 (60-); Glucose, Blood 105 mg/dL (70-99); Potassium, Blood 3.5 mmol/L (3.5-5.5); Sodium, Blood 142 mmol/L (136-145)
--- NOTE | 2020-11-30 06:29 | NUR ---
SHIFT SUMMARY PT IS ALERT WITH CONFUSION. PT IS VERY QUIET WITH LITTLE SPEECH TODAY. THERE HAVE BEEN NO ACUTE CHANGES. PT WAS ON BIPAP LAST NIGHT WITH FIO2 OF 21% AND IS NOW ON 2L NC. PT DID GET OUT OF BED ONCE AND SET OFF BED ALARM TO USE THE BATHROOM AND WAS ASSISTED, IS A MODERATE ASSIST TO BSC. PT DENIES CHEST PAIN OR ANY GENERAL PAIN. WOUND DRESSING ON UPPER BACK WAS CHANGED TODAY THERE IS AN UPDATED PICTURE IN THE CHART. BED ALARM IS ON.
--- NOTE | 2020-11-30 13:56 | NUR ---
Met pt. awake and lying in her bed and resting she reports doing fine encouraged pt. and prayed for her.
--- NOTE | 2020-11-30 18:29 | NUR ---
SHIFT SUMMARY PT HAS BEEN COOPERATIVE WITH CARE TODAY. PT REMAINS ON 2L O2 VIA NC, BIPAP AT BEDSIDE BUT WAS NOT NEEDED DURING THIS SHIFT. PT WORKED WITH PHYSICAL THERAPY BUT FELT TOO WEAK TO WALK AROUND, SHE STOOD AT THE BEDSIDE SEVERAL TIMES BEFORE LYING BACK DOWN. PT HAS REFUSED ORAL CARE TODAY. PT WAS SEEN BY DR. CARBONE FOR HER DRESSING ON HER CYST AND IT WAS REDRESSED BY DR. CARBONE AND DR. JREOME, IT IS TO BE REDRESSED EVERY OTHER DAY. PT HAD SOME URINE RETENTION AND DESPITE TRYING TO HAVE HER URINATE SHE WAS UNABLE; THE BLADDER SCAN SHOWED APPROXIMATELY 600ml URINE, AFTER A STRAIGHT CATH WAS COMPLETED THIS EVENING 700mL WAS EMPTIED. PT IS RESTING IN BED AT THIS TIME
[2020-12-01 04:57] LABS: Hemoglobin 7.9 g/dL (11.5-16.0); Mean Corpuscular HGB 22.4 pg (26.0-34.0); Mean Corpuscular HGB Conc 29.3 g/dL (31.5-36.5); Mean Corpuscular Volume 77 fL (80-100); Platelet Count 208 K/mm3 (150-400); RDW Coefficient Variation 19.8 % (11.7-14.2); RDW Standard Deviation 53.1 fL (35.1-46.3); Red Blood Cell Count 3.52 M/mm3 (3.80-5.20); White Blood Cell Count 10.23 K/mm3 (4.00-11.30)
[2020-12-01 05:19] LABS: Albumin, Blood 2.9 g/dL (3.4-5.0); Anion Gap 2 mmol/L (6-16); Blood Urea Nitrogen 29 mg/dL (8-24); Bun/Creatinine Ratio 33.1 (12.0-20.0); CO2, Blood 35 mmol/L (21-32); Calcium, Blood 8.9 mg/dL (8.5-10.1); Chloride, Blood 103 mmol/L (98-108); Creatinine, Blood 0.88 mg/dL (0.40-1.00); Glomerular Filtration Rate >60 (60-); Glucose, Blood 103 mg/dL (70-99); Phosphorus, Blood 3.6 mg/dL (2.5-4.9); Potassium, Blood 3.7 mmol/L (3.5-5.5); Sodium, Blood 140 mmol/L (136-145)
--- NOTE | 2020-12-01 07:17 | NUR ---
SHIFT SUMMARY PT A&O X4. CALM W/ FLAT AFFECT T/O SHIFT. VSS. MONITOR SHOWING SR, HR 80's. SPO2 > 92% ON 2L NC. BIPAP NOT USED. NO EVENTS OVER NIGHT.
--- NOTE | 2020-12-01 10:37 | NUR ---
PT ALERT AND ORIENTED X4. ON 3L O2 SATING ABOVE 94%. CRACKLES HEARD THROUGHOUT. DR. SAL AWARE. NEW ORDERS FOR IV LASIX. ON TELE SHOWING SINUS WITH HR 70'S. DENIES CHEST PAIN/PRESSURE. COMPLAINS OF SORNESS IN RIBS FROM COMPRESSIONS. VITAL SIGNS STABLE. BOWEL TONES HEARD. BRUISING THROUGHOUT. POWERGLIDE TO RIGHT UPPER ARM. PT VERY ANXIOUS THIS AM. MEDICATED PER EMAR AND NOW RELAXING IN BED. CALL LIGHT IN REACH. WILL CONTINUE TO MONITOR.
--- NOTE | 2020-12-01 13:14 | NUR ---
REPEAT EKG TODAY LOOKS TO BE UNCHANGED FROM PRIOR EKG. PLACED IN CHART. PT RESTING AT THIS TIME. DENIES NEEDS. WILL CONTINUE TO MONITOR.
--- NOTE | 2020-12-01 17:39 | NUR ---
NO ACUTE CHANGES. IN TO SEE PATIENT TODAY. 2 EPISODES OF PANIC ATTACKS, MEDICATED PER EMAR AND AT BEDSIDE FOR REASSURENCE. PT ABLE TO RECOVER FROM PANIC ATTACKS WITH COACHING. LUNG SOUNDS REMAIN CRACKLY. PT COUGHING UP WHITE/PRICE SPUTUM AND WORKING ON BREATHING EXERCISES. FLUID RESTRICTION IN PLACE. UP TO BEDSIDE COMMODE WITH 1 PERSON ASSIST AND FWW. TURNING AND REPOSITIONING NEEDED. DRESSING ON BACK REMAINS IN PLACE. PLAN TO CHANGE DRESSING TOMORROW PER SCHEDULE. VITAL SIGNS REMAIN STABLE. CALL LIGHT IN REACH, BED ALARM ON, AND BED IN LOW LOCKED POSITION. RESTING AT THIS TIME, WATCHING TV. WILL CONTINUE TO MONITOR AND REPORT OFF.
--- NOTE | 2020-12-02 06:02 | NUR ---
SHIFT SUMMARY NO ACUTE CHANGES THIS SHIFT. PT A&OX3. ANSWERS QUESTIONS APPROPRIATLY, FOLLOWS DIRECTIONS. SP02>92% ON 1L NC AT BEGINNING OF SHIFT. TITRATED TO >90% ON RA. 1L PRN FOR MOVEMENT TO BSC. TELEMETRY READ SR W/ PACS, HR 90'S. PT UP TO BSC TO VOID MULTIPLE TIMES. PT SLEPT MOST OF NIGHT. PT USED CALL LIGHT AROUND 0500 STATING SHE WAS ANXIOUS, MEDICATION GIVEN PER EMAR. CALL LIGHT IN REACH. WILL GIVE REPORT TO ONCOMING NURSE.
--- NOTE | 2020-12-02 10:21 | NUR ---
PT ALERT AND ORIENTED X4. ON 1 L O2 SATING HIGH 90'S. WHEN UP TO BEDSIDE COMMODE DESATS TO MID 80'S. ABLE TO RECOVER IN 3 MIN. LUNGS SOUNDING COARSE WITH CRACKLES. FLUID RESTRICTION IN PLACE. TELE SHOWING SINUS WITH HR 60-70'S. DENIES CHEST PAIN/PRESSURE. VITAL SIGNS STABLE. BOWEL TONES PRESENT. PT SKIN OVERALL BRUISING AND CYST WOUND TO UPPER BACK. DRESSING CHANGED THIS AM AND NEW PHOTO IN CHART. WOUND CARE ORDERS FOLLOWED. UP TO BSC WITH GAIT BELT AND FWW. BED ALARM ON FOR SAFETY. SPEECH PERCAUTIONS IN PLACE. WILL CONTINUE TO MONITOR. DENIES NEEDS AT THIS TIME.
--- NOTE | 2020-12-02 13:32 | NUR ---
Spoke with Dr Enciso prior to Pt visit and discussed case. Dr Enciso reports Pt may benefit from discussion regarding goals of care including comfort care. Pt admitted to the hospital for NSTEMI. Pt medical history and comorbidities include: Chronic Respiratory Failure, Severe Emphysema, Chronic Back Pain, Insomnia, HTN, Smoking, GERD, and Skin Cyst on her Back. Pt resting in bed upon arrival. Pt is A&O and reports tolerable pain in her rib cage area. She reports current regimen is managing her pain. Pt appears dyspneic as evidence by short 1 to 2 word sentences and voice is quiet. Engaged in therapeutic discussion regarding goals of care. Listened as Pt reports living with her ex Roman who is supportive of her care needs. Pt reports having a son who lives in [place]. Gentle education on disease process including trajectory of disease. Discussed the option for comfort care and hospice. Educated on comfort care and hospice philosophy. Pt reports interest in hospice and is unsure of starting comfort care while in the hospital. She states she would like to discuss with Roman before making a decision. Offered Pt for this RN to return when Roman visits with Pt in agreement. Pt reports no other concerns at this time. Spoke with Pt's Primary RN Natalya and discussed case. Palliative Care will remain available.
--- NOTE | 2020-12-02 18:21 | NUR ---
NO ACUTE CHANGES. PT REMAINS STABLE. VITAL SIGNS STABLE. FAMILY MEMBER SAMANTHA IN TO VISIT WITH PATIENT. PALLIATIVE CARE ABLE TO SPEAK WITH PT AND SAMANTHA ABOUT OPTIONS. CONSIDERING HOSPICE AT THIS TIME. PALLIATIVE CARE NOT IN TOMORROW. IF DECISION MADE ABOUT HOPSICE, LINING CLEANER NEEDS TO BE NOTIFIED. EPISODE OF ANXIETY TONIGHT. MEDICATED PER EMAR. VITAL SIGNS STABLE. WILL CONTINUE TO MONITOR.
[2020-12-03 05:20] LABS: Albumin, Blood 2.7 g/dL (3.4-5.0); Anion Gap 3 mmol/L (6-16); Blood Urea Nitrogen 31 mg/dL (8-24); CO2, Blood 33 mmol/L (21-32); Calcium, Blood 8.6 mg/dL (8.5-10.1); Chloride, Blood 101 mmol/L (98-108); Creatinine, Blood 0.94 mg/dL (0.40-1.00); Glomerular Filtration Rate >60 (60-); Glucose, Blood 88 mg/dL (70-99); Phosphorus, Blood 3.4 mg/dL (2.5-4.9); Potassium, Blood 3.8 mmol/L (3.5-5.5); Sodium, Blood 137 mmol/L (136-145)
--- NOTE | 2020-12-03 06:03 | NUR ---
SHIFT SUMMARY NO ACUTE CHANGES THIS SHIFT. PT A&OX3. SP02>92% ON 1L NC. TELEMETRY READS SR, HR 80'S. PT C/O OF ANXIETY THIS SHIFT, MEDICATED PER EMAR. PT REPOSITIONED SELF IN BED. UP TO BSC W/ 1 PERSON ASSIST TO VOID. CAPS CHANGED ON POWERGLIDE, THOUGH IT DOES NOT DRAW. MEDS TAKEN IN APPLESAUCE. PT SLEPT T/O NIGHT. CALL LIGHT IN REACH. WILL GIVE REPORT TO ONCOMING NURSE.
--- NOTE | 2020-12-03 15:05 | NUR ---
Spoke with information systems professor Kulwant, Dr Enciso, discussed case and concerns. Pt resting in bed and appears anxious and dyspneic. Pt is stating "no talk". Pt's SO Roman at bedside. Discussed hospice and considering comfort care [place] with Roman. Roman reports hospice is being set up and plan for equipment to be delivered before Pt D/C homes. Educated on comfort care philosophy with Roman being in agreement. Spoke with Pt and gently discussed considering comfort care. Pt is agreeable. Spoke with Primary RN Manju and discussed case. Placed comfort care order, comfort care order set, and D/C maintenance medications per V/O from Dr Enciso. Continued Pt's B/P meds and breathing treatments for comfort. Palliative Care will remain available.
--- NOTE | 2020-12-03 17:36 | NUR ---
SHIFT SUMMARY PT ALERT AND ORIENTED X 4. PT ABLE TO MAKE DECISION TO CONT TO COMFORT CARE BEFORE DISCHARGE HOME ON HOSPICE CARE. DECISION MADE WITH AND PALLIATIVE CARE AT BEDSIDE. MEDICATED PT FOR PAIN AND AIR HUNGER. SEE EMAR. PT REPROTS RELIEF. PT ABLE TO ASSIST IN TURNS IN BED. DRESSING ON BACK WNL. DRESSING INTACT. WITH PT AT BEDSIDE. WILL CONT TO MONITOR UNTIL REPORT GIVEN TO NIGHTSHIFT RN.
--- NOTE | 2020-12-03 18:04 | NUR ---
UPDATE PT ABLE TO VOID. CONT TO HAVE 550 ML OF URINE IN BLADDER. REFUSING CATHETER AT THIS TIME.
--- NOTE | 2020-12-03 19:40 | NUR ---
REPORT GIVEN REPORT GIVEN TO ROOM 355 RN. TO BE TAKEN BY BED WITH BELONGINGS AND CHART BY HYDROGRAPHER.
--- NOTE | 2020-12-04 04:20 | NUR ---
SLEEVE SEPARATOR SUMMARY PT A/O X3. SLEPT WELL TONIGHT. MEDICATED FOR PAIN X1 NOC SHIFT AND ONCE FOR ANXIETY. PT CURRENTLY ASLEEP IN BED. PT HAS NOT VOIDED TONIGHT. BLADDER SCANNED AT 0330 WITH A RESULT OF OVER 150ML IN THE BLADDER. ORDER TO CALL DR IF OVER 500ML IN BLADDER. CALL LIGHT WITHIN REACH, BED ALARM ON. WILL CONTINUE TO MONITOR.
[2020-12-04] MEDS ORDERED: METO25 PO (13:43)
[2020-12-04] MEDS ORDERED: PRED5 (13:46)
[2020-12-04] MEDS ORDERED: FURO40 PO (13:47)
[2020-12-04] MEDS ORDERED: GUAI600T33 PO (13:47)
[2020-12-04] MEDS ORDERED: SPIR25 PO (13:47)
--- NOTE | 2020-12-04 14:06 | NUR ---
PT SLEPT MOST OF THE AM, AT 1130 PT AWAKENED WITH CP AND ANXIETY, MEDICATED PER EMAR. MEDICATED EACH HOUR AFTERWARDS FOR PAIN. 1413 PT DISHCARGED HOME WITH HOSPICE VIA [facility], S/O TO MEET AT HOME. PT PREMEDICATED WITH [facility] PRIOR TO D/C. IV'S REMOVED. D/C PAPERWORK WITH TRANSPORT. WOUND CARE SUPPLIES SENT WITH FOR BACK.
--- NOTE | 2020-12-04 14:17 | NUR ---
LATE ENTRY. SPOKE WITH [facility] NURSE [facility] EARLIER, SHE REPORTS ADMITTING NURSE WILL BE AT HOME AT 1500.
== END 2020-12-04 14:17 | disposition hospice, home (50) | DRG 286 ==
LOC: ER 07:46 → PCU 07:47 → ICUW 11-21 17:12 → PCU 11-21 17:15 → ICUW 11-22 03:54 → PCU 11-23 16:30 → MEDS 12-03 20:02
PROVIDERS: Emergency Medicine; Family Medicine; Internal Medicine; Internal Medicine Cardiovascular Disease; Pharmacist; Physician Assistant; ADMIT Family Medicine
PROC: 4A023N7 Measurement of Cardiac Sampling and Pressure, Left Heart, Percutaneous Approach (ICD-10-PCS; principal; 2020-11-21)
PROC: B2151ZZ Fluoroscopy of Left Heart using Low Osmolar Contrast (ICD-10-PCS; 2020-11-21)
PROC: B2111ZZ Fluoroscopy of Multiple Coronary Arteries using Low Osmolar Contrast (ICD-10-PCS; 2020-11-21)
PROC: 0HB6XZZ Excision of Back Skin, External Approach (ICD-10-PCS; 2020-11-21)
PROC: 5A12012 Performance of Cardiac Output, Single, Manual (ICD-10-PCS; 2020-11-22)
PROC: 5A09457 Assistance with Respiratory Ventilation, 24-96 Consecutive Hours, Continuous Positive Airway Pressure (ICD-10-PCS; 2020-11-23)
DX: I51.81 Takotsubo syndrome (principal); J96.21 Acute and chronic respiratory failure with hypoxia; I46.9 Cardiac arrest, cause unspecified; J69.0 Pneumonitis due to inhalation of food and vomit; I50.21 Acute systolic (congestive) heart failure; E87.1 Hypo-osmolality and hyponatremia; I42.8 Other cardiomyopathies; N39.0 Urinary tract infection, site not specified; R64 Cachexia; F05 Delirium due to known physiological condition; Z99.81 Dependence on supplemental oxygen; K21.9 Gastro-esophageal reflux disease without esophagitis; Z51.5 Encounter for palliative care; Z20.822 Contact with and (suspected) exposure to COVID-19; Z66 Do not resuscitate; L72.3 Sebaceous cyst; M54.9 Dorsalgia, unspecified; G89.4 Chronic pain syndrome; R33.8 Other retention of urine; J43.9 Emphysema, unspecified; I11.0 Hypertensive heart disease with heart failure; F17.210 Nicotine dependence, cigarettes, uncomplicated; R45.1 Restlessness and agitation; F41.9 Anxiety disorder, unspecified; D50.9 Iron deficiency anemia, unspecified; G47.00 Insomnia, unspecified; Z90.710 Acquired absence of both cervix and uterus; Z88.8 Allergy status to other drugs, medicaments and biological substances; Z98.890 Other specified postprocedural states; Z79.82 Long term (current) use of aspirin; Z79.899 Other long term (current) drug therapy; Z79.51 Long term (current) use of inhaled steroids; Z79.52 Long term (current) use of systemic steroids; Z71.6 Tobacco abuse counseling
CPT/HCPCS: 36415; 51701; 51702; 71045; 71260; 76937; 80048; 80053; 80069; 81001; 82272; 82728; 82947; 83540; 83550; 83605; 83735; 83880; 84145; 84443; 84484; 85025; 85027; 85610; 85730; 86140; 86141; 92526; 92610; 93005; 93010; 93306; 93458; 94640; 94660; 94664; 94667; 94668; 94760; 94762; 96374-59; 96375; 96376; 97110; 97162; 97166; 97530; 97535; 99152; 99285-25; 99407; A9270; C1751; C1769; C1894; G0378; G0480; J0360; J0456; J0696; J1644; J1650; J1885; J1940; J2060; J2270; J2920; J2930; J3010; J7030; J7050; J7060; J7512; Q9967; U0004

== ENCOUNTER 2020-12-17 23:09 | Emergency (ER) | payer OTHER ==
[~2020-12-17] VITALS: Ht 160 cm; Wt 45.4 kg
[~2020-12-17 23:09] MED LIST changes: +FURO40 PO; +GUAI600T33 PO; +METO25 PO; +PRED5; +SPIR25 PO
[2020-12-18 00:11] LABS: BASOPHILS ABSOLUTE AUTO 0.02 K/mm3 (0.00-0.23); BASOPHILS PERCENT AUTO 0 % (0-2); EOSINOPHILS ABSOLUTE AUTO 0.02 K/mm3 (0.00-0.68); EOSINOPHILS PERCENT AUTO 0 % (0-6); Hematocrit 27.2 % (33.0-51.0); Hemoglobin 8.2 g/dL (11.5-16.0); IMMATURE GRAN ABSOLUTE AUTO 0.01 K/mm3 (0.00-0.10); IMMATURE GRAN PERCENT AUTO 0 % (0-1); LYMPHOCYTES ABSOLUTE AUTO 0.81 K/mm3 (0.84-5.20); LYMPHOCYTES PERCENT AUTO 17 % (21-46); MONOCYTES ABSOLUTE AUTO 0.38 K/mm3 (0.16-1.47); MONOCYTES PERCENT AUTO 8 % (4-13); Mean Corpuscular HGB 23.9 pg (26.0-34.0); Mean Corpuscular HGB Conc 30.1 g/dL (31.5-36.5); Mean Corpuscular Volume 79 fL (80-100); Mean Platelet Volume 10.2 fL (9.1-12.4); NEUTROPHILS ABSOLUTE AUTO 3.68 K/mm3 (1.96-9.15); NEUTROPHILS PERCENT AUTO 75 % (41-73); Platelet Count 152 K/mm3 (150-400); RDW Coefficient Variation 20.8 % (11.7-14.2); RDW Standard Deviation 58.9 fL (35.1-46.3); Red Blood Cell Count 3.43 M/mm3 (3.80-5.20); White Blood Cell Count 4.92 K/mm3 (4.00-11.30)
[2020-12-18 00:29] LABS: Alanine Aminotransfer (ALT/SGP 17 U/L (12-78); Albumin, Blood 2.8 g/dL (3.4-5.0); Alk Phos 81 U/L (50-136); Anion Gap 4 mmol/L (6-16); Aspartate Aminotrans (AST/SGOT 12 U/L (12-37); Bilirubin, Total 0.5 mg/dL (0.1-1.0); Blood Urea Nitrogen 15 mg/dL (8-24); Bun/Creatinine Ratio 17.5 (12.0-20.0); CO2, Blood 31 mmol/L (21-32); Calcium, Blood 9.1 mg/dL (8.5-10.1); Chloride, Blood 105 mmol/L (98-108); Creatinine, Blood 0.86 mg/dL (0.40-1.00); Globulin, Blood 2.7 g/dL (2.2-4.0); Glomerular Filtration Rate >60 (60-); Glucose, Blood 87 mg/dL (70-99); Potassium, Blood 4.2 mmol/L (3.5-5.5); Sodium, Blood 140 mmol/L (136-145); Total Protein, Blood 5.5 g/dL (6.4-8.2)
[2020-12-18] MEDS ORDERED: BISA5EC PO (03:06)
[2020-12-18] MEDS ORDERED: MAGCIT300 PO (03:06)
[2020-12-18] MEDS ORDERED: PROM25 PO (03:06)
== END 2020-12-18 04:49 | disposition home or self-care (01) ==
LOC: ER 23:09
PROVIDERS: Emergency Medicine
DX: K59.00 Constipation, unspecified (principal); I10 Essential (primary) hypertension; J44.9 Chronic obstructive pulmonary disease, unspecified; Z79.899 Other long term (current) drug therapy
CPT/HCPCS: 36415; 74018; 80053; 83690; 85025; 96374; 96375; 99284; A9270; J1170; J2550; J7030